=== PATIENT | female | born 2000 | race Hispanic/Latino ===

== ENCOUNTER 2020-10-06 15:47 | Observation (INO) | payer OTHER ==
[2020-10-06 16:55] LABS: #Lymphocytes 1.8 thou/uL (1.20-3.40); #Monocytes 0.6 thou/uL (0.11-0.59); #Neutrophils 5.1 thou/uL (1.40-6.50); %Basophils 0.6 % (0.0-1.0); %Eosinophils 0.6 % (0.0-10.0); %Lymphocytes 23.3 % (21.0-51.0); %Monocytes 7.3 % (0.0-10.0); %Neutrophils 68.2 % (42.0-75.0); Hemoglobin 13.6 g/dL (12.0-16.0); Mean Corpuscular HGB CONC 34.2 g/dL (32.0-36.0); Mean Corpuscular Hemoglobin 31.4 pg (27.0-31.0); Mean Corpuscular Volume 91.7 fL (78.0-98.0); Mean Platelet Volume 10.5 fL (7.4-10.4); Platelet Count 218 thou/uL (130-400); RBC Distribution Width 13.8 % (11.5-14.5); Red Blood Cell (RBC) Count 4.33 mill/uL (4.20-5.40); White Blood Cell (WBC) Count 7.5 thou/uL (4.8-10.8)
[2020-10-06 17:21] LABS: ALT (SGPT) 46 U/L (8-55); AST (SGOT) 22 U/L (5-34); Albumin 4.6 g/dL (3.5-5.0); Alkaline Phosphatase 48 U/L (40-110); Anion Gap 15 mmol/L (10-20); BUN (Urea Nitrogen) 9 mg/dL (7.0-18.7); Bilirubin, Total 2.1 mg/dL (0.2-1.2); Calc. Creatinine Clearance 0 mL/min (70-130); Calcium 9.6 mg/dL (7.8-10.44); Carbon Dioxide 26 mmol/L (22-29); Chloride 103 mmol/L (98-107); Globulin 2.8 g/dL (2.4-3.5); Glucose 96 mg/dL (70-105); Lipase 4 U/L (8-78); Potassium 3.7 mmol/L (3.5-5.1); Protein, Total 7.4 g/dL (6.0-8.3); Sodium 140 mmol/L (136-145)
[2020-10-06] MEDS ORDERED: Ketorolac Tromethamine 30 MG/ML VIAL ONE (18:02)
[2020-10-06 19:24] LABS: Bilirubin 1+ (Negative); Blood, Urine Negative (Negative); Clarity Turbid (Clear); Glucose, Urine (Dipstick) Normal (Negative); Ketone, Urine Trace mg/dL (Negative); Leukocyte 25 Leu/uL (Negative); Nitrite Negative (Negative); Protein, Urine (Dipstick) 50 mg/dL (Neg-Trace); Specific Gravity, Urine 1.029 (1.002-1.036); Urobilinogen 3 mg/dL (Less than 2)
[2020-10-06 19:37] LABS: RBC/HPF 0-3 HPF (0-3); Squamous Epithelial 0-3 HPF (0-3); WBC/HPF 0-3 HPF (0-3)
[2020-10-06 19:47] LABS: Pregnancy Test - Urine (BHCG) Negative (Negative); Pregu Control Background? CLEAR/WHITE (CLR/WHITE); Pregu Control Bar Appear? YES (CONTROL BAR); Specific Gravity 1.026 (1.002-1.036)
[2020-10-06] MEDS ORDERED: Morphine 4 MG/ML VIAL SLOW IVP PRN ×2 (20:46→20:48)
[2020-10-06] MEDS ORDERED: Ketorolac Tromethamine 30 MG/ML VIAL IVP PRN (20:48)
[2020-10-06] MEDS ORDERED: Promethazine HCl 25 MG/ML VIAL IM PRN (20:48)
[2020-10-06] MEDS ORDERED: hydrALAZINE 20 MG/ML VIAL SLOW IVP PRN (20:48)
[2020-10-06] MEDS ORDERED: Mag-Al 1200 mg/1200 mg/30 ML UDCUP PO PRN (20:48)
[2020-10-06] MEDS ORDERED: Dextrose 50% Abboject 50 ML SYRINGE SLOW IVP PRN (20:48)
[2020-10-06] MEDS ORDERED: Dextrose 5% in Water 1,000 ML IV PRN (20:48)
[2020-10-06] MEDS ORDERED: Calcium Carbonate 500 MG ChewTAB PO PRN (20:48)
[2020-10-06] MEDS ORDERED: Ondansetron ODT 4 MG TAB SL PRN (21:00)
[2020-10-06] MEDS ORDERED: Acetaminophen 325 MG TAB PO PRN (21:00)
[2020-10-06] MEDS ORDERED: Sodium Chloride 0.9% 1,000 ML IV SCH (21:00)
[2020-10-06] MEDS ORDERED: Ondansetron PF 4 MG/2 ML Vial IVP PRN (21:00)
[2020-10-06 21:30] VITALS: BMI 17.6
[2020-10-06] MEDS: Famotidine 20 MG TAB PO SCH (22:17)
[2020-10-06] MEDS: Ondansetron PF 4 MG/2 ML Vial IVP PRN (22:25)
[2020-10-06] MEDS: D5 1/2 NS w/20 mEq KCL 1,000 ML IV SCH (22:25)
[2020-10-06] MEDS: Famotidine/PF 20 mg/2ml Vial SLOW IVP SCH (22:25)
[2020-10-07 02:29] LABS: SARS-CoV-2 NAA Rapid Test Not Detected (NotDetected)
[2020-10-07] MEDS: D5 1/2 NS w/20 mEq KCL 1,000 ML IV SCH ×3 (05:01→23:41)
[2020-10-07 06:40] LABS: ALT (SGPT) 34 U/L (8-55); AST (SGOT) 16 U/L (5-34); Albumin 3.7 g/dL (3.5-5.0); Alkaline Phosphatase 38 U/L (40-110); Anion Gap 12 mmol/L (10-20); BUN (Urea Nitrogen) 9 mg/dL (7.0-18.7); Bilirubin, Total 1.8 mg/dL (0.2-1.2); Calc. Creatinine Clearance 85 mL/min (70-130); Calcium 9.1 mg/dL (7.8-10.44); Carbon Dioxide 23 mmol/L (22-29); Chloride 108 mmol/L (98-107); Globulin 2.4 g/dL (2.4-3.5); Glucose 107 mg/dL (70-105); Potassium 4.1 mmol/L (3.5-5.1); Protein, Total 6.1 g/dL (6.0-8.3); Sodium 139 mmol/L (136-145)
[2020-10-07] MEDS: Famotidine 20 MG TAB PO SCH ×2 (08:17→20:53)
[2020-10-07] MEDS: Famotidine/PF 20 mg/2ml Vial SLOW IVP SCH ×2 (08:19→20:53)
[2020-10-07] MEDS: Ondansetron PF 4 MG/2 ML Vial IVP PRN ×3 (08:22→21:30)
[2020-10-07] MEDS ORDERED: ceFOXitin 1 GM VIAL ONE (10:00)
[2020-10-07] MEDS ORDERED: Sodium Chloride 0.9% 100 ML ONE (10:01)
[2020-10-07] MEDS ORDERED: Fentanyl 100 MCG/2 ML VIAL ONE ×4 (10:13→12:39)
[2020-10-07] MEDS ORDERED: EPINEPHrine 1 MG/ML AMP ONE (10:14)
[2020-10-07] MEDS ORDERED: Bupivacaine 0.25% HCL 30 ML VIAL ONE (10:14)
[2020-10-07] MEDS ORDERED: Iothalamate Meglumine 60% 50 ML VIAL FS ONE (10:14)
[2020-10-07] MEDS ORDERED: Lidocaine 1% PF 5 ML VIAL ONE (10:37)
[2020-10-07] MEDS ORDERED: Glycopyrrolate 0.2 MG/ML 5 ML SYRINGE ONE (10:37)
[2020-10-07] MEDS ORDERED: Ondansetron PF 4 MG/2 ML Vial ONE (10:37)
[2020-10-07] MEDS ORDERED: PROPOFOL 200 MG/20 ML VIAL ONE (10:37)
[2020-10-07] MEDS ORDERED: Rocuronium Bromide 10 MG/ML (10ML VIAL) ONE (10:37)
[2020-10-07] MEDS ORDERED: Dexamethasone 20 MG/5 ML VIAL ONE (10:37)
[2020-10-07] MEDS ORDERED: Ketorolac Tromethamine 30 MG/ML VIAL ONE (10:37)
[2020-10-07] MEDS ORDERED: Promethazine HCl 25 MG/ML VIAL IVPB PRN (11:47)
[2020-10-07] MEDS ORDERED: Ondansetron HCl/PF 4 MG/2 ML Vial IVP PRN (11:47)
[2020-10-07] MEDS ORDERED: Promethazine HCl 25 MG/ML VIAL IM PRN (11:47)
[2020-10-07] MEDS ORDERED: SUGAMMADEX SODIUM 200 MG/2 ML VIAL ONE (11:49)
[2020-10-07] MEDS ORDERED: HYDROcodone/Acetaminophen 7.5/325 mg Tablet PO PRN (12:34)
[2020-10-07] MEDS: Morphine 2 MG/ML VIAL SLOW IVP PRN ×3 (15:04→23:40)
[2020-10-08] MEDS: Morphine 2 MG/ML VIAL SLOW IVP PRN (05:33)
[2020-10-08] MEDS: Ondansetron PF 4 MG/2 ML Vial IVP PRN (05:34)
[2020-10-08] MEDS: Famotidine 20 MG TAB PO SCH (07:46)
[2020-10-08] MEDS: Famotidine/PF 20 mg/2ml Vial SLOW IVP SCH (07:46)
[2020-10-08] MEDS: D5 1/2 NS w/20 mEq KCL 1,000 ML IV SCH (08:47)
[2020-10-08 09:05] VITALS: BP 123/82; TEMP 98.6
== END 2020-10-08 11:06 | disposition home or self-care (01) ==
LOC: ERS 15:47 → T4-A 19:39
PROVIDERS: ADMIT Surgery; ATTEND Surgery
PROC: 0FT44ZZ Resection of Gallbladder, Percutaneous Endoscopic Approach (ICD-10-PCS; principal; 2020-10-07)
PROC: BF121ZZ Fluoroscopy of Gallbladder using Low Osmolar Contrast (ICD-10-PCS; 2020-10-07)
DX: K81.2 Acute cholecystitis with chronic cholecystitis (principal); Z88.5 Allergy status to narcotic agent; Z91.048 Other nonmedicinal substance allergy status; Z20.822 Contact with and (suspected) exposure to COVID-19
CPT/HCPCS: 36415; 47532; 51701; 51798; 76705; 80053; 81003; 81015; 81025; 83690; 85025; 88304; 96374; 96375; 96376; G0378; J0171; J0694; J1100; J1885; J2270; J2405; J2550; J2704; J3010; J3480; J3490; Q9961; S0020; S0028; U0002; U0005

== ENCOUNTER 2021-08-07 00:36 | Emergency (ER) | payer OTHER ==
[2021-08-07 01:28] LABS: #Basophils 0.1 thou/uL (0.0-0.2); #Lymphocytes 3.2 thou/uL (1.20-3.40); #Monocytes 0.7 thou/uL (0.11-0.59); #Neutrophils 3.8 thou/uL (1.40-6.50); %Basophils 0.8 % (0.0-1.0); %Eosinophils 0.4 % (0.0-10.0); %Lymphocytes 40.9 % (21.0-51.0); %Monocytes 9.6 % (0.0-10.0); %Neutrophils 48.4 % (42.0-75.0); Hemoglobin 13.2 g/dL (12.0-16.0); Mean Corpuscular HGB CONC 34.4 g/dL (32.0-36.0); Mean Corpuscular Hemoglobin 32.8 pg (27.0-31.0); Mean Corpuscular Volume 95.4 fL (78.0-98.0); Mean Platelet Volume 10.1 fL (7.4-10.4); Platelet Count 233 thou/uL (130-400); RBC Distribution Width 11.8 % (11.5-14.5); Red Blood Cell (RBC) Count 4.02 mill/uL (4.20-5.40); White Blood Cell (WBC) Count 7.8 thou/uL (4.8-10.8)
[2021-08-07] MEDS ORDERED: Ondansetron ODT 4 MG TAB ONE (01:30)
[2021-08-07 01:46] LABS: Magnesium 2.1 mg/dL (1.6-2.6); Phosphorus 3.4 mg/dL (2.3-4.7)
[2021-08-07 02:56] LABS: ALT (SGPT) 34 U/L (8-55); AST (SGOT) 12 U/L (5-34); Albumin 4.8 g/dL (3.5-5.0); Alkaline Phosphatase 43 U/L (40-110); Anion Gap 15 mmol/L (10-20); BUN (Urea Nitrogen) 11 mg/dL (7.0-18.7); Bilirubin, Total 2.3 mg/dL (0.2-1.2); Calc. Creatinine Clearance 0 mL/min (70-130); Calcium 9.7 mg/dL (7.8-10.44); Carbon Dioxide 21 mmol/L (22-29); Chloride 105 mmol/L (98-107); Globulin 2.6 g/dL (2.4-3.5); Glucose 97 mg/dL (70-105); Potassium 3.4 mmol/L (3.5-5.1); Protein, Total 7.4 g/dL (6.0-8.3); Sodium 138 mmol/L (136-145)
== END 2021-08-07 03:18 | disposition home or self-care (01) ==
LOC: ERS 00:36
DX: R10.9 Unspecified abdominal pain (principal); R63.4 Abnormal weight loss; R10.817 Generalized abdominal tenderness; R11.2 Nausea with vomiting, unspecified
CPT/HCPCS: 80053; 83735; 84100; 84443; 85025; 99284; Q0162